=== PATIENT | male | born 1995 | race Hispanic/Latino ===

== ENCOUNTER 2019-12-11 05:31 | Emergency (ER) | payer SELFPAY ==
--- OUTSIDE RECORDS SUMMARY | 2019-12-11 05:32 | XMS REPORT | Summary of Care ---
:1995 Author Organization [facility] Address [address] [place] [id number] Care Team Providers Name Role Phone Unavailable Primary Care Provider Unavailable Reason for Visit Reason Comments Exposure headache and sore throat Encounter Details Date Type Department Care Team Description 12/05/2019 Laboratory Only [facility] Family Cynthia Mauro FNP [address] [place] [phone] Suspected Covid-19 Medicine - [facility], Adc Fam Pob I Virus Infection [address] [place] [address] (Primary D x) [place] [address] Allergies No Known Allergiesdocumented as of this encounter (statuses as of 12/05/2019) Medications Medication Sig Dispensed Refills Start Date End Date Status clindamycin-benzoyl Apply to affected 50 g 6 06/24/2011 Active peroxide (BENZACLIN area(s) every PUMP) gelIndications: morning. Other acne Adapalene (DIFFERIN) Apply to area(s). 45 g 6 06/24/2011 Active 0.3 % GelIndications: qhs to face and Other acne upper arms minocycline (DYNACIN) Take 1 Tab by 60 Tab 3 06/24/2011 Active 100 mg mouth 2 (two) tabletIndications: times daily. Other acne minocycline (DYNACIN) Take 1 Tab by 60 Tab 2 08/25/2011 Active 100 mg tablet mouth 2 (two) times daily. clindamycin-benzoyl Apply to affected 50 g 3 08/25/2011 Active peroxide (BENZACLIN area(s) every PUMP) gel morning. tretinoin microspheres Apply to affected 50 g 3 08/25/19 12 Active (RETIN-A MICRO PUMP) area(s) every 0.1 % gel evening. minocycline (DYNACIN) Take 1 Tab by 60 Tab 4 11/25/2011 Active 100 mg tablet mouth 2 (two) times daily. clindamycin-benzoyl Apply to affected 50 g 3 11/25/2011 Active peroxide (BENZACLIN area(s) every PUMP) gel morning. Apply to FULL FACE every morning tretinoin microspheres Apply to affected 50 g 3 11/25/19 12 Active (RETIN-A MICRO PUMP) area(s) every 0.1 % gel evening. Apply to FULL FACE every night Sulfacetamide Sodium Apply to area(s) 30 g 1 11/25/2011 Active (CODI-PREV) 10 % Crea as needed (acne flares). Use as spot treatment for acne documented as of this encounter (statuses as of 12/05/2019) Active Problems Not on filedocumented as of this encounter (statuses as of 12/05/2019) Social History Tobacco Use Types Packs/Day Years Used Date Never Assessed Sex Assigned at Date Recorded Not on file COVID-19 Exposure Response Date Recorded In the last month, have you been in contact with No / Unsure 12/05/2019 11:21 AM CDT someone who was confirmed or suspected to have Coronavirus / COVID-19? documented as of this encounter Last Filed Vital Signs Not on filedocumented in this encounter Nursing Notes Flor Bowling MA - 12/05/2019 11:20 AM Binta Eaton is a 24 year old male here for COVID Screening with a Nasopharyngeal Swab All droplet and contact precautions taken with appropriate PPE worn while interacting with patient. ? Goggles ? N95 Mask ? Gloves ? Gown RR 18 Pulse Ox 98% Patient educated on plan of care for visit, swabbing technique, risks and benefits of test and length of time to receive results. Verbal consent obtained to perform test. CDC Fact Sheet for Patients nCoV Diagnostic Panel dated 07/09/2019 and Factsheet What to Do if Sick with COVID 19 06/19/19 provided. Patient swabbed per appropriate nasopharyngeal technique, and patient tolerated well. Patient was discharged from the testing clinic in stable condition. Flor Jose MA 12/05/2019 11:22 AM documented in this encounter Plan of Treatment Name Type Priority Associated Diagnoses Order S chedule COVID-19 (PCR MOLECULAR LAB Routine Suspected Covid-1 9 Virus Expected: 12/05/2019, TESTING) Infection Expires: 2020 documented as of this encounter Results Not on filedocumented in this encounter Visit Diagnoses Diagnosis Suspected Covid-19 Virus Infection - [facility] documented in this encounter Additional Health Concerns Infection Onset Date Last Indicated Resolved Time COVID-19 Rule Out 12/05/2019 12/05/2019 documented as of this encounter Advance Directives Type Date Recorded 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
--- OUTSIDE RECORDS SUMMARY | 2019-12-11 05:32 | XMS REPORT | Continuity of Care Document ---
:1995 Author Organization [facility] t Address [address] [place] [address] Dr. [address]. [address] [place] [address] Care Team Providers Name Role Phone Lab, Fam Pob I Attending Clinician Unavailable Doctor Unassigned, Name Attending Clinician Unavailable Lab, Covid Attending Clinician Unavailable Problems This patient has no known problems. Allergies, Adverse Reactions, Alerts This patient has no known allergies or adverse reactions. Medications This patient has no known medications. Procedures This patient has no known procedures. Encounters Start End Encounter Admission Attending Care Care Encounter Source Date/Time Date/Time Type Type Clinicians Facility Department ID 2019-12-05 2019-12-05 Laboratory Lab, [facility] [id number] 11:13:15 11:33:15 Only Fam Pob I Health [id number] [place] [id number] Professio [phone] nal [address] 2019-12-05 2019-12-05 Letter Doctor GRAHAM [id number] 00:00:00 00:00:00 (Out) Unassigned, LINUS [id number] [place] [facility] [id number] [phone] 2019-12-05 2019-12-05 Letter Lab, Pcp [facility] [id number] 00:00:00 00:00:00 (Out) Covid Health [id number] [place] [id number] Professio [phone] nal 0[address] Results This patient has no known results.
--- OUTSIDE RECORDS SUMMARY | 2019-12-11 05:32 | XMS REPORT | Summary of Care ---
:1995 Author Organization [facility] - Health Address [address] [place] [address] Care Team Providers Name Role Phone Unavailable Primary Care Provider Unavailable Encounter Details Date Type Department Care Team Description 12/05/2019 Letter (Out) [facility] [place] [facility] Message s Doctor Unassigned, No [address] [facility] [place] [phone] ON LICENSE OF [facility] [phone] [place] [address] Allergies No Known Allergiesdocumented as of this [...] Assigned at Date Recorded Not on file documented as of this encounter Last Filed Vital Signs Not on filedocumented in this encounter Plan of Treatment Date Type Specialty Care Team Description 12/05/2019 Laboratory Only Family Medicine Shira Mauro, READING TUTOR [address] [place] [phone] Lab, Adc Marquise Pob I documented as of this encounter Results Not on filedocumented in this encounter Advance Directives Type Date Recorded 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
--- OUTSIDE RECORDS SUMMARY | 2019-12-11 05:33 | XMS REPORT | Summary of Care ---
:1995 Author Organization [facility] Address [address] [place] [address] Care Team Providers Name Role Phone Unavailable Primary Care Provider Unavailable Encounter Details Date Type Department Care Team Description 12/05/2019 Letter (Out) 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
--- NOTE | 2019-12-11 07:36 | EDPHYS ---
Physician Documentation [facility] Name: Jayme Eaton Age: 24 yrs Sex: Male : 1995 Arrival Date: 12/11/2019 Time: 05:31 Bed 20 Private MD: ED Physician Sj Ayers HPI: 12/10 06:33 This 24 yrs old Male presents to ER via Ambulatory with complaints of jmm Shortness Of Breath, Chest Tightness. 06:33 The patient has shortness of breath at rest. Onset: The symptoms/episode began/occurred jmm gradually, today. The patient's shortness of breath is aggravated by nothing, is alleviated by nothing. Associated signs and symptoms: Pertinent negatives: fever. This is a 24 year old male with no chronic medical conditions that presents to the ED with complaints of shortness of breath, loss of smell, headache, worsening today. Patient states his and child have tested positive for COVID. . Historical: - Allergies: 06:31 No Known Allergies; mt2 - PMHx: 06:31 None; mt2 - Immunization history:: Adult Immunizations up to date. - Social history:: Smoking status: Patient denies any tobacco usage or history of. ROS: 06:33 Constitutional: Negative for fever, chills, and weight loss. jmm 06:33 Respiratory: Positive for cough, shortness of breath. 06:33 Abdomen/GI: Negative for abdominal pain. 06:33 All other systems are negative. Exam: 06:33 Constitutional: This is a well developed, well nourished patient who is awake, alert, jmm and in no acute distress. Head/Face: atraumatic. Eyes: EOMI, no conjunctival erythema appreciated ENT: Moist Mucus Membranes Neck: Trachea midline, Supple Chest/axilla: Normal chest wall appearance and motion. Cardiovascular: Regular rate and rhythm. No edema appreciated Respiratory: Normal respirations, no respiratory distress appreciated Abdomen/GI: Non distended, soft Back: Normal ROM Skin: General appearance color normal MS/ Extremity: Moves all extremities, no obvious deformities appreciated, no edema noted to the lower extremities Neuro: Awake and alert, normal gait Psych: Behavior is normal, Mood is normal, Patient is cooperative and pleasant Vital Signs: 06:26 BP 131 / 81; Pulse 79; Resp 16; Temp 98.3(O); Pulse Ox 99% on R/A; Pain 6/10; mt2 07:18 BP 126 / 84; Pulse 80; Resp 19; Pulse Ox 96% ; jl7 MDM: 06:54 Patient medically screened. [facility] 09:58 Data reviewed: vital signs, nurses notes. [facility] 09:58 Counseling: I had a detailed discussion with the patient and/or guardian regarding: the [facility] historical points, exam findings, and any diagnostic results supporting the discharge/admit diagnosis, radiology results. ED course: Patient is alert and non toxic in appearance in the ED. No signs of resp distress. Patient advised of the risk of a worsening conditions and given s/s to look out for. Patient understood and agrees with the plan of care. . 12/10 06:33 Order name: Chest Single View XRAY; Complete Time: 09:58 [facility] Administered Medications: No medications were administered Disposition: 12/11/19 07:35 Discharged to Home. Impression: Viral Respiratory Infection. - Condition is Stable. - Discharge Instructions: COVID-19. - Medication Reconciliation Form, Thank You Letter, Antibiotic Education, Prescription Opioid Use form. - Follow up: Private Physician; When: 2 - 3 days; Reason: Recheck today's complaints, Continuance of care, Re-evaluation by your physician. - Notes: NAC 600 mg - 1000 mg two times a day Quercetin 500 mg two times a day Zinc 50 mg daily Vitmain D 4000 IU daily Addendum: 12/12/2019 10:51 Co-signature as Attending Physician, Sj Ayers MD I agree with the assessment and t w4 plan of care. Signatures: Dispatcher [employer] [facility] Matt Marie PA PA [facility] Kailee Castro, RN RN jl7 Sj Ayers MD MD tw4 Brii Guzman RN RN mt2 Corrections: (The following items were deleted from the chart) 12/10 07:20 06:34 CORONAVIRUS+[email or web address].BRZ ordered. [facility] 07:55 07:35 12/11/2019 07:35 Discharged to Home. Impression: Viral Respiratory Infection. jl7 Condition is Stable. Forms are Medication Reconciliation Form, Thank You Letter, Antibiotic Education, Prescription Opioid Use. Follow up: Private Physician; When: 2 - 3 days; Reason: Recheck today's complaints, Continuance of care, Re-evaluation by your physician. joyce
--- NOTE | 2019-12-11 07:36 | ER ---
Nurse's Notes [facility] Name: Jayme Eaton Age: 24 yrs Sex: Male : 1995 Arrival Date: 12/11/2019 Time: 05:31 Bed 20 Private MD: Diagnosis: Viral Respiratory Infection Presentation: 12/10 06:26 Chief complaint: Patient states: PER PT "I WAS EXPOSED TO COVID. MY AND CHILD mt2 TESTED POSITIVE. I TESTED NEGATIVE BUT I HAVE THE SYMPTOMS. CHEST TIGHTNESS, SOB, COUGH, RUNNY NOSE. ACHES. I LOSS THE ABILITY TO TASTE OR SMELL. IM COUGHING UP INFECTIOUS MUCUS ITS GREEN". PT ALSO STATED THAT HE HAS ANOTHER COVID PENDING FROM [facility] SINCE [facility] REFUSED TO TEST HIM AGAIN. Coronavirus screen: Client denies travel out of the [place] in the last 14 days. chills, cough unrelated to allergies, difficulty breathing, headache, muscle pain, nausea, runny nose, shortness of breath, loss of taste or smell, Client presents with at least one sign or symptom that may indicate coronavirus-19. Standard/surgical mask placed on the client. Provider contacted for isolation considerations. The client indicates previous COVID test results are pending. Date of collection: December 10, 2019 The client reports previous COVID testing was negative. Date of collection: December 06, 2019. Ebola Screen: No symptoms or risks identified at this time. Initial Sepsis Screen: Does the patient meet any 2 criteria? No. Patient's initial sepsis screen is negative. Does the patient have a suspected source of infection? No. Patient's initial sepsis screen is negative. Risk Assessment: Do you want to hurt yourself or someone else?. Onset of symptoms was November 2019. 06:26 Method Of Arrival: Ambulatory mt2 06:26 Acuity: ABDIRAHMAN 3 mt2 Triage Assessment: 06:31 General: Appears uncomfortable, Behavior is agitated. Pain: Complains of pain in mt2 GENERALIZED. EENT: Reports nasal discharge that is green. Neuro: No deficits noted. Cardiovascular: Reports chest pain, shortness of breath. Respiratory: Reports shortness of breath cough that is Onset: The symptoms/episode began/occurred gradually, the patient has mild shortness of breath. GI: Reports nausea. : No deficits noted. Derm: No deficits noted. Musculoskeletal: Reports pain in GENERALIZED ACHES. Historical: - Allergies: 06:31 No Known Allergies; mt2 - PMHx: 06:31 None; mt2 - Immunization history:: Adult Immunizations up to date. - Social history:: Smoking status: Patient denies any tobacco usage or history of. Screenin:33 Abuse screen: Denies threats or abuse. Nutritional screening: No deficits noted. mt2 Tuberculosis screening: No symptoms or risk factors identified. Fall Risk None identified. Assessment: 06:34 Respiratory: Airway is patent Respiratory effort is unlabored. mt2 06:34 Respiratory: Breath sounds are clear bilaterally. mt2 06:34 Cardiovascular: Rhythm is regular. mt2 07:18 Reassessment: COVID swab cancelled per ERP, Felicia in lab notified. jl7 Vital Signs: 06:26 BP 131 / 81; Pulse 79; Resp 16; Temp 98.3(O); Pulse Ox 99% on R/A; Pain 6/10; mt2 07:18 BP 126 / 84; Pulse 80; Resp 19; Pulse Ox 96% ; jl7 ED Course: 05:31 Patient arrived in ED. cl3 06:09 Matt Marie PA is PHCP. [facility] 06:09 Sj Ayers MD is Attending Physician. [facility] 06:26 Brii Guzman, MARY is Primary Nurse. mt2 06:31 Triage completed. mt2 06:31 Arm band placed on right wrist. mt2 06:34 Patient has correct armband on for positive identification. Bed in low position. Call mt2 light in reach. Side rails up X 1. 07:03 Chest Single View XRAY In Process Unspecified. EDMS 07:18 Pulse ox on. NIBP on. jl7 07:55 No provider procedures requiring assistance completed. Patient did not have IV access jl during this emergency room visit. Administered Medications: No medications were administered Outcome: 07:35 Discharge ordered by . [facility] 07:55 Discharged to home ambulatory. jl7 07:55 Condition: stable 07:55 Discharge instructions given to patient, Instructed on discharge instructions, follow up and referral plans. Demonstrated understanding of instructions, follow-up care. 07:55 Patient left the ED. jl7 Signatures: Dispatcher [employer] EDMS Matt Marie PA PA jmm Leal, Jahala, RN RN jl7 Reji Dos Santos cl3 Brii Guzman, RN RN mt2
--- NOTE | 2019-12-11 07:51 | RAD REPORT ---
EXAM DESCRIPTION: Basilio Single View12/11/2019 7:03 am CLINICAL HISTORY: Cough COMPARISON: 2014 FINDINGS: The lungs appear clear of acute infiltrate. The heart is normal size IMPRESSION: No acute abnormalities displayed
[2019-12-11 08:00] VITALS: TEMP 98.3
[2019-12-11 08:01] VITALS: BP 126/84; O2SAT 96
== END 2019-12-11 07:55 | disposition home or self-care (01) ==
LOC: ER 05:31
DX: J06.9 Acute upper respiratory infection, unspecified (principal)
CPT/HCPCS: 71045; 99283

== ENCOUNTER 2022-03-27 19:50 | Emergency (ER) | payer SELFPAY ==
--- OUTSIDE RECORDS SUMMARY | 2022-03-27 19:54 | XMS REPORT | Continuity of Care Document ---
:1995 Author Organization [facility] t Address [address] [place] [address] Dr. Hollingsworth. [address] [place] [address] Care Team Providers Name Role Phone ASIF SONG Attending Clinician Unavailable Lab, Adc Fam Pob I Attending Clinician Unavailable Asif Helm Attending Clinician Doctor Unassigned, [place] Attending Clinician Unavailable Lab, Pcp Covid Attending Clinician Unavailable Problems This patient has no known problems. Allergies, Adverse Reactions, Alerts Allergy Allergy Status Severity Reaction(s) Onset Inactive Treating Comm ents Source Name Type Date Date Clinician NO KNOWN Drug Active Univers ALLERGIE Class ity of [facility] Social History Social Habit Start Date Stop Date Quantity Comments Source Exposure to SARS-CoV-2 Not sure [facility] (event) [facility] Sm[facility] Status Start Date Stop Date Source Unknown if ever smoked [facility] Medications Ordered Filled Start Stop Current Ordering Indication Dosage Frequency Signature Comments Components Source Medication Medication Date Date Medication? Clinician (SIG) Name Name minocycline Yes 100mg Take 1 Tab Univers (DYNACIN) 11-24 by mouth 2 ity of 100 mg 00:00: (two) [place] tablet 00 times Medical daily. Branch clindamycin Yes Apply to Un carl -benzoyl 11-24 affected ity of peroxide 00:00: area(s) [place] (BENZACLIN 00 every Medical PUMP) gel morning. Branch Apply to FULL FACE every morning tretinoin Yes Apply to [facility] [place] [facility] ers microsphere 8 affected ity of s (RETIN-A 00:00[place] MICRO PU[place] 00 every Medical 0.1 % gel evening. Branch Apply to FULL FACE every night Sulfacetami Yes Apply to Un carl de Sodium 8 area(s) as ity of (CODI-PREV) 00:00: needed [place] 10 % Crea 00 (acne Medical flares). Branch Use as spot treatment for acne minocycline Yes 100mg Take 1 Tab Univers (DYNACIN) 8- by mouth 2 ity of 100 mg 00:00: (two) [place] tablet 00 times Medical daily. Branch clindamycin Yes Apply to Un carl -benzoyl 11-24 affected ity of peroxide 00:00: area(s) [place] (BENZACLIN 00 every Medical PUMP) gel morning. Branch Apply to FULL FACE every morning tretinoin Yes Apply to [facility] [place] [facility] ers microsphere 11-24 affected ity of s (RETIN-A 00:00: [place] MICRO PUMP[place] 00 every Medical 0.1 % gel evening. Branch Apply to FULL FACE every night Sulfacetami Yes Apply to Un carl de Sodium 11-24 area(s) as ity of (CODI-PREV) 00:00: needed [place] 10 % Crea 00 (acne Medical flares). Branch Use as spot treatment for acne minocycline Yes 100mg Take 1 Tab Univers (DYNACIN) 8- by mouth 2 ity of 100 mg 00:00: (two) [place] tablet 00 times Medical daily. Branch clindamycin Yes Apply to Un carl -benzoyl 11-24 affected ity of peroxide 00:00: area(s) [place] (BENZACLIN 00 every Medical PUMP) gel morning. Branch Apply to FULL FACE every morning tretinoin Yes Apply to [facility] [place] [facility] ers microsphere 8 affected ity of s (RETIN-A 00:00: [place] MICRO PUMP[place] 00 every Medical 0.1 % gel evening. Branch Apply to FULL FACE every night Sulfacetami Yes Apply to Un carl de Sodium 8 area(s) as ity of (CODI-PREV) 00:00: needed [place] 10 % Crea 00 (acne Medical flares). Branch Use as spot treatment for acne minocycline Yes 100mg Take 1 Tab Univers (DYNACIN) 5-01 by mouth 2 ity of 100 mg 00:00: (two) [place] tablet 00 times Medical daily. Branch clindamycin Yes Apply to Un carl -benzoyl 5- affected ity of peroxide 00:00: area(s) [place] (BENZACLIN 00 every Medical PUMP) gel morning. Branch tretinoin Yes Apply to [facility] [place] [facility] ers microsphere 5 affected ity of s (RETIN-A 00:00: [place] MICRO PUMP[place] 00 every Medical 0.1 % gel evening. Branch minocycline Yes 100mg Take 1 Tab Univers (DYNACIN) 5-01 by mouth 2 ity of 100 mg 00:00: (two) [place] tablet 00 times Medical daily. Branch clindamycin Yes Apply to Un carl -benzoyl 5- affected ity of peroxide 00:00: area(s) [place] (BENZACLIN 00 every Medical PUMP) gel morning. Branch tretinoin Yes Apply to [facility] [place] [facility] ers microsphere 5 affected ity of s (RETIN-A 00:00: [place] MICRO PUMP[place] 00 every Medical 0.1 % gel evening. Branch minocycline Yes 100mg Take 1 Tab Univers (DYNACIN) 5-01 by mouth 2 ity of 100 mg 00:00: (two) [place] tablet 00 times Medical daily. Branch clindamycin Yes Apply to Un carl -benzoyl 5 affected ity of peroxide 00:00: area(s) [place] (BENZACLIN 00 every Medical PUMP) gel morning. Branch tretinoin Yes Apply to [facility] [place] [facility] ers microsphere 5 affected ity of s (RETIN-A 00:00: [place] MICRO PUMP) 00 every Medical 0.1 % gel evening. Branch clindamycin Yes [id number] Apply to Univers -benzoyl 2-29 affected ity of peroxide 00:00: area(s) [place] (BENZACLIN 00 every Medical PUMP) gel morning. Branch Adapalene Yes [id number] Apply to Univers (DIFFERIN) 2-29 area(s). ity o f 0.3 % Gel 00:00: qhs to [place] 00 face and Medical upper arms Branch minocycline Yes [id number] 100mg Take 1 Tab Univers (DYNACIN) 2-29 by mouth 2 ity of 100 mg 00:00: (two) [place] tablet 00 times Medical daily. Branch clindamycin Yes [id number] Apply to Univers -benzoyl 2-29 affected ity of peroxide 00:00: area(s) [place] (BENZACLIN 00 every Medical PUMP) gel morning. Branch Adapalene Yes [id number] Apply to Univers (DIFFERIN) 2-29 area(s). ity o f 0.3 % Gel 00:00: qhs to [place] face and Medical upper arms Branch minocycline Yes [id number] 100mg Take 1 Tab Univers (DYNACIN) 2-29 by mouth 2 ity of 100 mg 00:00: (two) [place] tablet 00 times Medical daily. Branch clindamycin Yes [id number] Apply to Univers -benzoyl 2-29 affected ity of peroxide 00:00: area(s) [place] (BENZACLIN 00 every Medical PUMP) gel morning. Branch Adapalene Yes [id number] Apply to Univers (DIFFERIN) 2-29 area(s). ity o f 0.3 % Gel 00:00: qhs to [place] face and Medical upper arms Branch minocycline Yes [id number] 100mg Take 1 Tab Univers (DYNACIN) 2-29 by mouth 2 ity of 100 mg 00:00: (two) [place] tablet 00 times Medical daily. Branch Procedures This patient has no known procedures. Encounters Start End Encounter Admission Attending Care Care Encounter Source Date/Time Date/Time Type Type Clinicians Facility Department ID 2019-12-09 2019-12-09 Outpatient R NOHEMI [facility] [id number] [facility] 15:40:00 15:40:00 ASIF ity of [facility] 2019-12-05 2019-12-05 Laboratory Lab, Adc Fam Pob I [facility] 1.2. [id number] [facility] 11:13:15 11:33:15 Only Asif Song [id number] ity of [place] [id number] Jay as Maria Antonia [phone] La dical nal [address] 2019-12-05 2019-12-05 Laboratory Lab, Adc [facility] [id number] 11:13:15 11:33:15 Only Fam Pob I Health [id number] [place] [id number] Professio [phone] [place] [address] [address] 2019-12-05 2019-12-05 Outpatient R NOHEMI, [facility] [id number] Univers 11:20:00 11:20:00 ASIF ity of [facility] 2019-12-05 2019-12-05 Letter Doctor [facility] [id number] Univers 00:00:00 00:00:00 (Out) Unassigned, LINUS [id number] ity of [place] [facility] [id number] Jay as [phone] [address] 2019-12-05 2019-12-05 Letter Lab, Pcp [facility] [id number] Univers 00:00:00 00:00:00 (Out) Covid Health [id number] it y of [place] [id number] Jay as Professio [phone] La dical [address] 2019-12-05 2019-12-05 Letter Doctor GLADYS [id number] 00:00:00 00:00:00 (Out) Unassigned, LINUS [id number] [place] [facility] [id number] [phone] [facility] 2019-12-05 2019-12-05 Letter Lab, Pcp [facility] [id number] 00:00:00 00:00:00 (Out) Covid Health [id number] [place] [id number] Professio [phone] [place] [address] [address] Results This patient has no known results.
[2022-03-27] MEDS ORDERED: IBUPROFEN 400 MG TAB ONE (21:06)
[2022-03-27] MEDS ORDERED: HYDROCODONE/CHLORPHEN 5 ML/OSYR ONE (21:13)
[2022-03-27 21:22] LABS: SARS-COV-2 RT PCR NEGATIVE (NEGATIVE)
--- NOTE | 2022-03-27 21:48 | RAD REPORT ---
EXAM DESCRIPTION: RAD - Chest Pa And Lat (2 Views) - 03/27/2022 9:40 pm CLINICAL HISTORY: COUGH Chest pain. COMPARISON: Chest Single View dated 12/11/2019; CHEST SINGLE VIEW dated 05/17/2014; CHEST SINGLE VIEW dated 08/03/2009; ABDOMEN 1 VIEW KUB dated 01/26/2008 FINDINGS: The lungs are clear. The heart is normal in size. No displaced fractures. IMPRESSION: No acute or concerning finding suspected.
--- NOTE | 2022-03-27 23:05 | ER ---
Nurse's Notes [facility] Name: Jayme Eaton Age: 26 yrs Sex: Male : 1995 Arrival Date: 03/27/2022 Time: 19:53 Bed 13 Private MD: Diagnosis: Acute tonsillitis, unspecified;Cough Presentation: 03/27 20:30 Chief complaint: Patient states: fever, cough, joint pain, sore throat x2 days. kb3 Coronavirus screen: Vaccine status: Patient reports being unvaccinated. Client denies travel out of the [place] in the last 14 days. Ebola Screen: Patient negative for fever greater than or equal to 101.5 degrees Fahrenheit, and additional compatible Ebola Virus Disease symptoms Patient denies exposure to infectious person. Patient denies travel to an Ebola-affected area in the 21 days before illness onset. Initial Sepsis Screen: Does the patient meet any 2 criteria? No. Patient's initial sepsis screen is negative. Does the patient have a suspected source of infection? No. Patient's initial sepsis screen is negative. Risk Assessment: Do you want to hurt yourself or someone else? Patient reports no desire to harm self or others. Onset of symptoms was March 26, 2022. 20:30 Method Of Arrival: Ambulatory 3 20:30 Acuity: ABDIRAHMAN 3 kb3 Triage Assessment: 20:32 General: Appears in no apparent distress. Behavior is calm, cooperative. Pain: kb3 Complains of pain in uvula, left aspect of posterior pharynx and right aspect of posterior pharynx Pain does not radiate. Pain currently is 10 out of 10 on a pain scale. Cardiovascular: Denies chest pain, nausea, shortness of breath, vomiting. Respiratory: Reports shortness of breath cough that is non-productive, Breath sounds are clear bilaterally. Historical: - Allergies: 20:32 No Known Allergies; kb3 - Home Meds: 20:32 None [Active]; kb3 - PMHx: 20:32 None; kb3 - PSHx: 20:32 None; kb3 - Immunization history:: Adult Immunizations up to date, Client reports having NOT received the Covid vaccine. Last tetanus immunization: unknown. - Social history:: Smoking status: Patient reports the use of cigarette tobacco products, denies chronic smoking, but will smoke occasionally. Screenin:00 Abuse screen: Denies threats or abuse. Nutritional screening: No deficits noted. ke1 Tuberculosis screening: No symptoms or risk factors identified. Fall Risk None identified. Vital Signs: 20:30 BP 139 / 79; Pulse 89; Resp 20; Temp 98.9; Pulse Ox 99% ; Weight 104.33 kg; Height 5 kb3 ft. 8 in. (172.72 cm); Pain 10/10; 23:59 BP 132 / 76; Pulse 82; Resp 19; Temp 98.8; Pulse Ox 100% ; Pain 0/10; ke1 20:30 Body Mass Index 34.97 (104.33 kg, 172.72 cm) kb3 ED Course: 19:53 Patient arrived in ED. dt4 19:57 Marcos Kearney PA is PHCP. cp 19:57 Isaac Torres MD is Attending Physician. cp 20:31 Triage completed. kb3 20:32 Arm band placed on right wrist. kb3 20:41 Strep Sent. kb3 20:41 COVID-19/FLU A+B Sent. kb3 21:34 Heladio Miguel, RN is Primary Nurse. ke1 21:42 XRAY Chest Pa And Lat (2 Views) In Process Unspecified. EDMS 22:00 Patient has correct armband on for positive identification. Bed in low position. Call ke1 light in reach. Pulse ox on. NIBP on. 23:58 Patient did not have IV access during this emergency room visit. Patient maintains SpO2 ke1 saturation greater than 95% on room air. 23:58 No provider procedures requiring assistance completed. ke1 Administered Medications: 21:19 Drug: Ibuprofen 800 mg Route: PO; kb3 22:00 Follow up: Response: Pain is decreased ke1 21:19 Drug: Tussionex Pennkinetic ER (chlorpheniramine-hydrocodone) Suspension 5 ml Route: PO;kb3 22:00 Follow up: Response: Other; Othercough decreased ke1 23:45 Drug: GI Cocktail without - (Maalox Suspension 30 ml, Lidocaine Liquid 2 % 15 ke1 ml) Route: PO; 23:55 Follow up: Response: Marked relief of symptoms ke1 Medication: 23:58 VIS not applicable for this client. ke1 Outcome: 23:04 Discharge ordered by . cp 23:58 Discharged to home ambulatory. ke1 23:58 Condition: good 23:58 Discharge instructions given to patient. 03/28 00:00 Patient left the ED. ke1 Signatures: Dispatcher [employer] EDMS Marcos Kearney PA PA cp Ebrottie, Kouassi, RN RN ke1 Mirtha Fernandez RN RN kb3 Nelly Mckeon dt4
--- NOTE | 2022-03-27 23:05 | EDPHYS ---
Physician Documentation [facility] Name: Jayme Eaton Age: 26 yrs Sex: Male : 1995 Arrival Date: 03/27/2022 Time: 19:53 Bed 13 Private MD: ED Physician Isaac Torres HPI: 03/27 21:00 This 26 yrs old Male presents to ER via Ambulatory with complaints of Cough, cp Chest Pain, Low Back Pain, Knee Pain. 21:00 The patient or guardian reports cough, that is constant, flu symptoms, arthralgias, cp chest pain, low back pain. Onset: The symptoms/episode began/occurred 2 day(s) ago. Severity of symptoms: in the emergency department the symptoms are unchanged, despite home interventions. 21:00 Associated signs and symptoms: Pertinent positives: chest pain, with cough, sore cp throat, Pertinent negatives: diarrhea, vomiting. Historical: - Allergies: 20:32 No Known Allergies; kb3 - Home Meds: 20:32 None [Active]; kb3 - PMHx: 20:32 None; kb3 - PSHx: 20:32 None; kb3 - Immunization history:: Adult Immunizations up to date, Client reports having NOT received the Covid vaccine. Last tetanus immunization: unknown. - Social history:: Smoking status: Patient reports the use of cigarette tobacco products, denies chronic smoking, but will smoke occasionally. ROS: 21:10 Constitutional: Positive for body aches, Negative for fever, poor PO intake. cp 21:10 Eyes: Negative for injury, pain, redness, and discharge. cp 21:10 ENT: Positive for sore throat, Negative for drainage from ear(s), ear pain, difficulty swallowing, difficulty handling secretions. 21:10 Cardiovascular: Positive for chest pain, with cough. 21:10 Respiratory: Positive for cough, "sounds productive", hemoptysis, Negative for shortness of breath, wheezing. 21:10 Abdomen/GI: Negative for abdominal pain, vomiting, diarrhea, constipation. 21:10 Back: Positive for pain at rest, pain with movement. 21:10 Neuro: Negative for altered mental status, headache, weakness. 21:10 All other systems are negative. Exam: 21:13 Constitutional: The patient appears in no acute distress, alert, awake, cp non-diaphoretic, non-toxic, well developed, well nourished. 21:13 Head/Face: Normocephalic, atraumatic. cp 21:13 Eyes: Periorbital structures: appear normal, Conjunctiva: normal, no exudate, no injection, Sclera: no appreciated abnormality, Lids and lashes: appear normal, bilaterally. 21:13 ENT: External ear(s): are unremarkable, Ear canal(s): are normal, clear, TM's: dullness, bilaterally, Nose: is normal, Mouth: Lips: moist, Oral mucosa: moist, Posterior pharynx: Airway: no evidence of obstruction, patent, Tonsils: bilaterally enlarged, with erythema, no exudate, Uvula: midline, erythema, that is moderate, exudate, is not appreciated. 21:13 Neck: ROM/movement: is normal, is supple, without pain, no range of motions limitations, no meningismus. 21:13 Chest/axilla: Inspection: normal. 21:13 Cardiovascular: Rate: normal, Rhythm: regular, Edema: is not appreciated, JVD: is not appreciated. 21:13 Respiratory: the patient does not display signs of respiratory distress, Respirations: normal, no use of accessory muscles, no retractions, labored breathing, is not present, Breath sounds: decreased breath sounds, are not appreciated, stridor, is not appreciated, + upper airway congestion. wheezing: is not appreciated. 21:13 Abdomen/GI: Inspection: abdomen appears normal, Palpation: abdomen is soft and non-tender, in all quadrants. 21:13 Back: CVA tenderness, is absent. 21:13 Neuro: Orientation: to person, place \\T\\ time. Mentation: is normal, Motor: moves all fours, strength is normal, Sensation: is normal, Gait: is steady, at a normal pace. Vital Signs: 20:30 BP 139 / 79; Pulse 89; Resp 20; Temp 98.9; Pulse Ox 99% ; Weight 104.33 kg; Height 5 kb3 ft. 8 in. (172.72 cm); Pain 10/10; 23:59 BP 132 / 76; Pulse 82; Resp 19; Temp 98.8; Pulse Ox 100% ; Pain 0/10; ke1 20:30 Body Mass Index 34.97 (104.33 kg, 172.72 cm) kb3 MDM: 20:45 Patient medically screened. cp 21:00 Differential Diagnosis: Bronchitis Influenza Otitis Media Viral Syndrome Pneumonia. cp 23:04 Data reviewed: vital signs, nurses notes, lab test result(s), radiologic studies, plain cp films. 23:04 Test interpretation: by ED physician or midlevel provider: plain radiologic studies. cp Counseling: I had a detailed discussion with the patient and/or guardian regarding: the historical points, exam findings, and any diagnostic results supporting the discharge/admit diagnosis, lab results, radiology results, to return to the emergency department if symptoms worsen or persist or if there are any questions or concerns that arise at home. Response to treatment: the patient's symptoms have markedly improved after treatment, and as a result, I will discharge patient. ED course: VSS. Patient appears non-toxic and no signs of respiratory distress. Will discharge to home for continued monitoring. 03/27 20:35 Order name: COVID-19/FLU A+B; Complete Time: 22:34 cp 03/27 20:35 Order name: Strep; Complete Time: 22:34 cp 03/27 20:35 Order name: XRAY Chest Pa And Lat (2 Views); Complete Time: 22:34 cp / 22:34 Interpretation: Report reviewed. cp 12/ 21:06 Order name: Throat Culture EDMS Administered Medications: 21:19 Drug: Ibuprofen 800 mg Route: PO; kb3 22:00 Follow up: Response: Pain is decreased ke1 21:19 Drug: Tussionex Pennkinetic ER (chlorpheniramine-hydrocodone) Suspension 5 ml Route: PO;kb3 22:00 Follow up: Response: Other; Othercough decreased ke1 23:45 Drug: GI Cocktail without - (Maalox Suspension 30 ml, Lidocaine Liquid 2 % 15 ke1 ml) Route: PO; 23:55 Follow up: Response: Marked relief of symptoms ke1 Disposition Summary: 03/27/22 23:04 Discharge Ordered Location: Home cp Condition: Stable cp Diagnosis - Acute tonsillitis, unspecified cp - Cough cp Followup: cp - With: Private Physician - When: 2 - 3 days - Reason: Worsening of condition Discharge Instructions: - Discharge Summary Sheet cp - Tonsillitis cp - Cough, Adult cp - Form - Excuse from Work, School, or Physical Activity cp Forms: - Medication Reconciliation Form cp - Thank You Letter cp - Antibiotic Education cp - Prescription Opioid Use cp - Work release form ke1 Prescriptions: - Bromfed DM 2-30-10 mg/5 mL Oral syrup - take 10 milliliter by ORAL route every 6 hours; 180 milliliter; Refills: 0, cp Product Selection Permitted - Lidocaine Viscous - take 5 milliliter by ORAL route every 4-6 hours As needed; 1 bottle; Refills: cp 0, Product Selection Permitted - Amoxicillin 875 mg Oral Tablet - take 1 tablet by ORAL route every 12 hours for 10 days; 20 tablet; Refills: 0, cp Product Selection Permitted - Ibuprofen 800 mg Oral Tablet - take 1 tablet by ORAL route every 8 hours As needed take with food; 30 tablet; cp Refills: 0, Product Selection Permitted Addendum: 03/31/2022 13:56 Co-signature as Attending Physician, Isaac Torres MD. r n Signatures: Dispatcher [employer] EDMS Isaac Torres MD MD rn Page, Corey, PONCHO PA cp Heladio Miguel RN RN ke1 Mirtha Fernandez RN RN kb3 Corrections: (The following items were deleted from the chart) 03/28 22:29 03/27 21:00 The patient or guardian reports cough, that is constant, cp cp
[2022-03-27] MEDS ORDERED: MAGNES/ALUMIN/SIMET 30ML UCUP ONE (23:32)
[2022-03-27] MEDS ORDERED: LIDOCAINE VISCOUS 2% SOLN 15 ML UDC ONE (23:33)
[2022-03-28 00:16] VITALS: BP 132/76; TEMP 98.8; O2SAT 100
== END 2022-03-28 | disposition home or self-care (01) ==
LOC: ER 19:50
DX: J03.90 Acute tonsillitis, unspecified (principal); R05.9 Cough, unspecified; Z20.822 Contact with and (suspected) exposure to COVID-19
CPT/HCPCS: 0240U; 71046; 87070; 87081; 99284

== ENCOUNTER 2024-04-03 00:31 | Emergency (ER) | payer BC ==
[2011-10-07 18:19] VITALS: BP 157/75
--- OUTSIDE RECORDS SUMMARY | 2024-04-03 00:33 | XMS REPORT | Continuity of Care Document ---
Author Name Unknown Address [address] [place] [address] [facility] thconnect Address [address] [place] [address] Care Team Providers Care Billing Supervisor Name Role Phone ASIF SONG Attending Clinician Unavailable Doctor Unassigned, [place] Attending Clinician U navailable Lab, Adc Fam Pob I Attending Clinician Unavailab Asif Joseph Attending Clinician [phone] Lab, Pcp Covid Attending Clinician Unavailable Allergies, Adverse Reactions, Alerts Allergy Name Allergy Type Status Severity Reaction(s) Onset Date Inactive Date Treating Clinician Comments Source NO KNOWN ALLERGIE S Drug Class Active [facility] Social History Social Habit Start Date Stop Date Quantity Comments Source [facility] Exposure to SARS-CoV-2 (event) 2019-11-05 00:00:00 2019-12-05 11:21:00 Not sure [facility] Sex Assigned At 1995 00:00:00 1995 00:00:00 [facility] Smoking Status Start Date Stop Date Source Tobacco smoking consumption unknown [facility] Medications Ordered Medication Name Filled Medication Name Start Date Stop Date Current Medication? Ordering Clinician Indication Dosage Frequency Signature (SIG) Comments Components Source minocycline (DYNACIN) 100 mg tablet 11-24 00:00: 00 Yes 100mg Take 1 Tab by mouth 2 (two) times daily. [facility] clindamycin -benzoyl peroxide (BENZACLIN PUMP) gel 11-24 00:00: 00 Yes Apply to affected area(s) every morning. Apply to FULL FACE every morning [facility] tretinoin microsphere s (RETIN-A MICRO PUMP) 0.1 % gel 11-24 00:00: 00 Yes Apply to affected area(s) every evening. Apply to FULL FACE every night [facility] Sulfacetami de Sodium (CODI-PREV) 10 % Crea 11-24 00:00: 00 Yes Apply to area(s) as needed (acne flares). Use as spot treatment for acne [facility] minocycline (DYNACIN) 100 mg tablet 08-24 00:00: 00 Yes 100mg Take 1 Tab by mouth 2 (two) times daily. [facility] clindamycin -benzoyl peroxide (BENZACLIN PUMP) gel 08-24 00:00: 00 Yes Apply to affected area(s) every morning. [facility] tretinoin microsphere s (RETIN-A MICRO PUMP) 0.1 % gel 08-24 00:00: 00 Yes Apply to affected area(s) every evening. [facility] clindamycin -benzoyl peroxide (BENZACLIN PUMP) gel 00:00: 00 Yes [id number] Apply to affected area(s) every morning. [facility] Adapalene (DIFFERIN) 0.3 % Gel 00:00: 00 Yes [id number] Apply to area(s). qhs to face and upper arms [facility] minocycline (DYNACIN) 100 mg tablet 00:00: 00 Yes [id number] 100mg Take 1 Tab by mouth 2 (two) times daily. [facility] Encounters Start Date/Time End Date/Time Encounter Type Admission Type Attending Clinicians Care Facility Care Department Encounter ID Source 2019-12-09 15:40:00 2019-12-09 15:40:00 [facility] [id number] [facility] 2019-12-06 00:00:2019-12-06 00:00:00 Patient Secure Msg Doctor Unassigned, [place] [facility] 1.0.114 350.1.13.10 4.2.7.2.686 [id number] [facility] 2019-12-05 11:13:15 2019-12-05 11:33:15 Laboratory Only Lab, [facility] [address] 1.0.114 350.1.13.10 4.2.7.2.686 [id number] 2019-12-05 11:13:15 2019-12-05 11:33:15 Laboratory Only Lab, [facility] Jose Perdomothia [facility] [address] 1.0.114 350.1.13.10 4.2.7.2.686 [id number] [facility] 2019-12-05 11:20:00 2019-12-05 11:20:00 [facility] [id number] 2019-12-05 00:00:00 2019-12-05 00:00:00 Letter (Out) Doctor Unassigned, [place] [facility] 1.0114 350.1.13.10 4.2.7.2.686 [id number] [facility] 2019-12-05 00:00:00 2019-12-05 00:00:00 Letter (Out) Lab, Ubaldo Batista [facility] [address] 1.0.114 350.1.13.10 4.2.7.2.686 [id number] [facility] 2019-12-05 00:00:00 2019-12-05 00:00:00 Letter (Out) Doctor Unassigned, [place] [facility] 1.0.114 350.1.13.10 4.2.7.2.686 [id number] 2019-12-05 00:00:00 2019-12-05 00:00:00 Letter (Out) Lab, Pcp [facility] [id number] 350.1.13.10 4.2.7.2.686 [id number]
--- NOTE | 2024-04-04 01:41 | ER ---
Nurse's Notes [facility] Name: Jayme Eaton Age: 28 yrs Sex: Male : 1995 Arrival Date: 04/03/2024 Time: 00:31 Bed Waiting Private MD: Diagnosis: ED Course: 04/03 00:33 Patient arrived in ED. [id number] Administered Medications: No medications were administered Outcome: 01:40 Patient left the ED. vc1 01:40 Eloped from waiting room, vc1 01:40 Condition: good vc1 Signatures: Sabine Berger jj6 Silvia Morrow, RN RN vc1
== END 2024-04-03 01:40 | disposition left against medical advice (07) ==
LOC: ER 00:31
DX: Z02.9 Encounter for administrative examinations, unspecified (principal)